=== PATIENT | female | born 1995 | race Caucasian/White ===

== ENCOUNTER 2023-12-14 22:23 | Emergency (ER) | payer SELFPAY ==
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
[2023-12-14 22:31] VITALS: BP 118/75; PULSE 84; RESP 18; TEMP 36.9; O2SAT 97; BMI 21.1
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
[2023-12-15] MEDS: diphenhydrAMINE HCL 50 MG/ML VIAL IVPUSH (00:07)
[2023-12-15] MEDS: Ketorolac Tromethamine 15 MG/ML VIAL IVPUSH (00:07)
[2023-12-15] MEDS: Metoclopramide HCl 10 MG/2 ML VIAL IVPUSH (00:08)
[2023-12-15] MEDS: 0.9 % Sodium Chloride 1,000 ML 999 ML IV (00:13)
[2023-12-15 00:26] VITALS: BP 101/49; PULSE 60; RESP 14; TEMP 36.7; O2SAT 94
[2023-12-15 02:13] VITALS: RESP 18
[2023-12-15] MEDS: HYDROmorphone HCl 1 MG/ML SYRINGE IVPUSH (02:13)
[2023-12-15 03:23] VITALS: BP 105/68; PULSE 62; RESP 16; TEMP 36.7; O2SAT 96
== END 2023-12-15 03:27 | disposition home or self-care (01) ==
PROVIDERS: Emergency Provider Emergency Medicine Emergency Medical Services
DX: S09.90XA Unspecified injury of head, initial encounter (principal); F07.81 Postconcussional syndrome; R11.0 Nausea; V86.55XA Driver of 3- or 4- wheeled all-terrain vehicle (ATV) injured in nontraffic accident, initial encounter; Y93.9 Activity, unspecified; Y92.9 Unspecified place or not applicable; Y99.9 Unspecified external cause status
CPT/HCPCS: 70450; 96361; 96374; 96375; 99284; J1170; J1200; J1885; J2765